=== PATIENT | male | born 1975 | race American Indian/Alaskan Native ===

== ENCOUNTER 2019-10-01 09:50 | Emergency (ER) | payer OTHER ==
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
[2019-10-01] MEDS ORDERED: predniSONE 20 MG TAB PO ONE (12:34)
[2019-10-01] MEDS ORDERED: IBUPROFEN 800 MG TAB PO ONE (12:34)
[2019-10-01 12:45] VITALS: BP 119/72
== END 2019-10-01 14:40 | disposition home or self-care (01) ==
LOC: ED 09:50
DX: M79.604 Pain in right leg (principal); M79.605 Pain in left leg; Z95.5 Presence of coronary angioplasty implant and graft; Z79.899 Other long term (current) drug therapy; V59.59XA Passenger in pick-up truck or van injured in collision with other motor vehicles in traffic accident, initial encounter; Y93.89 Activity, other specified; Y92.410 Unspecified street and highway as the place of occurrence of the external cause; Y99.8 Other external cause status
CPT/HCPCS: 99283; J7512

== ENCOUNTER 2020-08-01 22:42 | Emergency (ER) | payer SELFPAY ==
--- NOTE | 2020-08-01 22:59 | Emergency Department Report ---
ED Psych HPI - General Chief Complaint: Psych Stated Complaint: SUIDICAL IDEATIONS Time Seen by Provider: 08/01/20 22:56 Source: EMS Mode of arrival: Ambulatory - History of Present Illness Initial Comments: 44-year-old male with history of depression and schizophrenia, presents to the ED with suicidal ideations. Patient states he is suicidal because he is unhappy with where he is in life. Patient states he has been sleeping outside for the past 2 weeks. He also reports crack cocaine, marijuana, alcohol abuse. Patient has no plan for suicide. Patient states he has been off his psych meds for approximately 1 year. MD Complaint: suicidal ideation -: This evening Associated Psychiatric Symptoms: depression, suicidal ideation Quality: constant Improves With: none Worsens With: none Context: not taking psychiatric, significant life stressor Associated Symptoms: denies other symptoms Treatments Prior to Arrival: none If Self Harm: admits thoughts of - Related Data Home Medications Medication Instructions Recorded Confirmed Last Taken FLUoxetine HCL [PROzac] 40 mg PO QDAY 08/01/20 08/01/20 Unknown Quetiapine Fumarate [SEROquel] 600 mg PO HS 08/01/20 08/01/20 Unknown Allergies Allergy/AdvReac Type Severity Reaction Status Date / Time No Known Allergies Allergy Unverified 08/01/20 23:01 ED Review of Systems ROS: Stated complaint: SUIDICAL IDEATIONS Other details as noted in HPI Comment: All other systems reviewed and negative Psychiatric: suicidal thoughts ED Past Medical Hx - Past Medical History Additional medical history: Cardiac stents - Social History Smoking Status: Never Smoker Substance Use Type: None - Medications Home Medications: Home Medications Medication Instructions Recorded Confirmed Last Taken Type FLUoxetine HCL [PROzac] 40 mg PO QDAY 08/01/20 08/01/20 Unknown History Quetiapine Fumarate [SEROquel] 600 mg PO HS 08/01/20 08/01/20 Unknown History ED Physical Exam - General Limitations: No Limitations General appearance: alert, in no apparent distress - Head Head exam: Present: atraumatic, normocephalic - Eye Eye exam: Present: normal appearance, EOMI - ENT ENT exam: Present: mucous membranes moist - Neck Neck exam: Present: normal inspection - Respiratory Respiratory exam: Present: normal lung sounds bilaterally. Absent: respiratory distress - Cardiovascular Cardiovascular Exam: Present: regular rate, normal rhythm - GI/Abdominal GI/Abdominal exam: Absent: distended - Extremities Exam Extremities exam: Present: normal inspection - Neurological Exam Neurological exam: Present: alert, oriented X3 - Psychiatric Psychiatric exam: Present: normal affect, normal mood - Skin Skin exam: Present: warm, dry, intact, normal color ED Course Vital Signs 08/01/20 22:58 Temperature 98 F Pulse Rate 88 Respiratory 16 Rate Blood Pressure 126/83 [Left] O2 Sat by Pulse 98 Oximetry ED Medical Decision Making - Lab Data Result diagrams: 08/01/20 23:15 08/01/20 23:15 - Medical Decision Making 44-year-old male presents to ED with reports of suicidal ideation with no plan. Patient reports he is homeless and has been using crack cocaine. Labs are unremarkable. Medically clear for mental health evaluation. Will dispo per psych. Critical care attestation.: If time is entered above; I have spent that time in minutes in the direct care of this critically ill patient, excluding procedure time. ED Disposition Clinical Impression: Cocaine abuse, Depression, Suicidal ideation Condition: Stable Referrals: PRIMARY CARE, [Primary Care Provider] - 3-5 Days
[2020-08-01 23:44] LABS: Basophils % (Auto) 0.6 % (0.0-1.8); Eosinophils # (Auto) 0.1 K/mm3 (0.0-0.4); Eosinophils % (Auto) 0.9 % (0.0-4.3); Hematocrit 41.7 % (35.5-45.6); Lymphocytes # (Auto) 1.6 K/mm3 (1.2-5.4); Lymphocytes % (Auto) 20.7 % (13.4-35.0); Mean Corpuscular HGB Conc 34 % (32-34); Mean Corpuscular Volume 78 fl (84-94); Monocytes # (Auto) 0.6 K/mm3 (0.0-0.8); Monocytes % (Auto) 7.9 % (0.0-7.3); Platelet Count 225 K/mm3 (140-440); Red Blood Count 5.36 M/mm3 (3.65-5.03); Red Cell Distribution Width 14.7 % (13.2-15.2)
[2020-08-01 23:50] LABS: Amphetamine Screen,Urine PRESUMPTIVE NEGATIVE; Benzodiazepines Screen,Urine PRESUMPTIVE NEGATIVE; Cannabinoid Screen,Urine PRESUMPTIVE POSITIVE; Cocaine Screen,Urine PRESUMPTIVE POSITIVE; Methadone Screen,Urine PRESUMPTIVE NEGATIVE; Opiate Screen,Urine PRESUMPTIVE NEGATIVE
[2020-08-01 23:52] LABS: Bacteria,Urine 1+ /HPF (Negative); Bilirubin,Urine NEG (Negative); Blood,Urine NEG (Negative); Color,Urine Yellow (Yellow); Mucus,Urine 3+ /HPF
[2020-08-01 23:56] LABS: BUN/Creatinine Ratio 16; Blood Urea Nitrogen 23 mg/dL (9-20); Calcium 10.2 mg/dL (8.4-10.2); Hemolysis Index 5
--- NOTE | 2020-08-03 10:11 | Consultation ---
History of Present Illness - Reason for Consult Consult date: 08/03/20 Reason for consult: SI - History of Present Psychiatric Illness Gavin Teran is a 44y/o male patient who presented to the ER for suicidal thoughts. The patient is a/o x 3. He makes poor eye contact. The patient says he has "been off his medication for about a year." He says "I need to get stabiliz ed back on them." The patient says he has a history of "schizoaffective disorder, and depression." He says he takes "seroquel 600 and prozac 40." The patient says "I have a lot going on right now." He denies attempting suicide in the past. The patient denies hallucinations. He states he hasn't slept in about "two days." The patient verbalizes being "depressed." He admits to using "crack," and says "I gotta stop. I know that's the source of how I feel." PAST PSYCHIATRIC HISTORY Diagnoses: schizophrenia and depression Suicide attempts or Self-harm behavior: Denies Prior psychiatric hospitalizations: "yes" Substance Abuse history: crack Previous psychiatric medications tried: seroquel, prozac Outpatient treatment: not recently PAST MEDICAL HISTORY: None reported Family Psychiatric History: None reported or documented SOCIAL HISTORY Marital Status: Single Living Arrangements: Homeless Employment Status: Unemployed Access to guns/weapons: Denies Education: History of Abuse: Denies Legal History: Denies EVIEW OF SYSTEMS Constitutional: Negative for weight loss ENT: Negative for stridor Respiratory: Negative for cough or hemoptysis All other systems reviewed and are negative MENTAL STATUS EXAMINATION General Appearance and Behavior: Age appropriate, wearing appropriate clothes, poor eye contact, cooperative Mood: "depressed" Affect and affective range: congruent with mood Thought Process: logical Thought Content: hallucinations Speech: Normal volume, Regular rate and rhythm Suicidal Ideation: Yes Homicidal Ideation: Denies Homicidal Hallucinations: denies Delusions: None elicited Impulse Control: normal Insight and Judgment: Limited Memory/Cognition: Normal Attention: Normal Orientation: Alert, oriented Assessment (1) Schizoaffective Disorder (2) Cocaine Use Disorder (2) Substance Induced Mood Disorder Plan Start Seroquel 300mg po qhs Start Prozac 40mg po qd Sitter: Defer to primary Medical: Per primary Disposition: Recommend acute inpatient treatment Will follow. Thank you for this consult. Medications and Allergies Allergies Allergy/AdvReac Type Severity Reaction Status Date / Time No Known Allergies Allergy Unverified 08/01/20 23:01 Home Medications Medication Instructions Recorded Confirmed Last Taken Type FLUoxetine HCL [PROzac] 40 mg PO QDAY 08/01/20 08/01/20 Unknown History Quetiapine Fumarate [SEROquel] 600 mg PO HS 08/01/20 08/01/20 Unknown History Mental Status Exam - Vital signs Last Vital Signs Temp 98.5 F 08/03/20 08:31 Pulse 61 08/03/20 08:31 Resp 19 08/03/20 08:31 BP 104/80 08/03/20 08:31 Pulse Ox 98 08/03/20 08:31 Results Result Diagrams: 08/01/20 23:15 08/01/20 23:15 All other labs normal.
[2020-08-03] MEDS ORDERED: NON-FORMULARY EACH (Fluoxetine Hcl [Prozac] 40 MG) PO SCH (10:15)
[2020-08-03] MEDS: FLUoxetine 20 MG CAP PO SCH (12:13)
[2020-08-03 13:48] LABS: BUN/Creatinine Ratio 14; Blood Urea Nitrogen 18 mg/dL (9-20); Calcium 9.4 mg/dL (8.4-10.2); Hemolysis Index 8
[2020-08-03] MEDS: QUEtiapine 100 MG TAB PO SCH (21:56)
--- NOTE | 2020-08-04 09:32 | Progress Note ---
Subjective - Reason for Consult Consult date: 08/04/20 Reason for consult: SI - Chief Complaint Chief complaint: During my interview with the patient, he was lying down. He is a/o x 3. The patient says he's feeling "okay." He says the last time he was feeling suicidal was this morning. He says, "I need help, ma'am. I can't go on feeling like this." He denies hallucinations of any kind. EVIEW OF SYSTEMS Constitutional: Negative for weight loss ENT: Negative for stridor Respiratory: Negative for cough or hemoptysis All other systems reviewed and are negative MENTAL STATUS EXAMINATION General Appearance and Behavior: Age appropriate, wearing appropriate clothes, poor eye contact, cooperative Mood: "depressed" Affect and affective range: congruent with mood Thought Process: goal directed Thought Content: logical Speech: Normal volume, Regular rate and rhythm Suicidal Ideation: Yes Homicidal Ideation: Denies Hallucinations: denies Delusions: None elicited Impulse Control: normal Insight and Judgment: Limited Memory/Cognition: Normal Attention: Normal Orientation: Alert, oriented Assessment (1) Schizoaffective Disorder (2) Cocaine Use Disorder (2) Substance Induced Mood Disorder Plan Increased Seroquel 300mg po BID Sitter: Defer to primary Medical: Per primary Disposition: Recommend acute inpatient treatment Will follow. Thank you for this consult. Mental Status Exam - Vital signs Last Vital Signs Temp 97.5 F L 08/04/20 02:30 Pulse 67 08/04/20 02:30 Resp 18 08/04/20 02:30 BP 110/74 08/04/20 02:30 Pulse Ox 97 08/04/20 02:30
[2020-08-04] MEDS: FLUoxetine 20 MG CAP PO SCH (11:13)
[2020-08-04] MEDS: QUEtiapine 100 MG TAB PO SCH ×2 (11:14→21:35)
[2020-08-05] MEDS: QUEtiapine 100 MG TAB PO SCH ×3 (10:15→23:10)
--- NOTE | 2020-08-05 14:22 | Progress Note ---
Subjective - Reason for Consult Consult date: 08/05/20 Reason for consult: SI - Chief Complaint Chief complaint: During my interview with the patient, he was lying down. He is a/o x 3. The patient says he "seems to be getting better." He says, "ma'am, I do feel better, but the suicidal thoughts are still there." He then says "but they are decreasing." The patient says, "the medications have been helping me, but I really need an inpatient treatment." He says, "it just doesn't feel like I been taking them long enough." He denies hallucinations of any kind. EVIEW OF SYSTEMS Constitutional: Negative for weight loss ENT: Negative for stridor Respiratory: Negative for cough or hemoptysis All other systems reviewed and are negative MENTAL STATUS EXAMINATION General Appearance and Behavior: Age appropriate, wearing appropriate clothes, poor eye contact, cooperative Mood: "dbetter" Affect and affective range: congruent with mood Thought Process: goal directed Thought Content: logical Speech: Normal volume, Regular rate and rhythm Suicidal Ideation: Yes Homicidal Ideation: Denies Hallucinations: denies Delusions: None elicited Impulse Control: normal Insight and Judgment: Limited Memory/Cognition: Normal Attention: Normal Orientation: Alert, oriented Assessment (1) Schizoaffective Disorder (2) Cocaine Use Disorder (2) Substance Induced Mood Disorder Plan Continue current medications Sitter: Defer to primary Medical: Per primary Disposition: Recommend acute inpatient treatment Will follow. Thank you for this consult. Mental Status Exam - Vital signs Last Vital Signs Temp 97.8 F 08/05/20 02:00 Pulse 68 08/05/20 02:00 Resp 18 08/05/20 02:00 BP 99/74 08/05/20 02:00 Pulse Ox 100 08/05/20 02:00
[2020-08-05] MEDS: FLUoxetine 20 MG CAP PO SCH (15:53)
[2020-08-06 09:03] VITALS: BP 121/65
== END 2020-08-06 09:14 ==
LOC: ED 22:42 → EEVIPCON 22:42 → ED 08-06 09:14
DX: F25.1 Schizoaffective disorder, depressive type (principal); F14.10 Cocaine abuse, uncomplicated; R45.851 Suicidal ideations; Z79.899 Other long term (current) drug therapy; Z95.5 Presence of coronary angioplasty implant and graft
CPT/HCPCS: 36415; 80048; 80307; 80320; 81001; 85025; G0480

== ENCOUNTER 2020-09-12 05:17 | Emergency (ER) | payer SELFPAY ==
[2020-09-12 07:03] LABS: Basophils # (Auto) 0.1 K/mm3 (0.0-0.1); Basophils % (Auto) 0.7 % (0.0-1.8); Eosinophils # (Auto) 0.1 K/mm3 (0.0-0.4); Eosinophils % (Auto) 1.5 % (0.0-4.3); Hematocrit 39.8 % (35.5-45.6); Hemoglobin 13.2 gm/dl (11.8-15.2); Lymphocytes % (Auto) 12.1 % (13.4-35.0); Mean Corpuscular HGB Conc 33 % (32-34); Mean Corpuscular Volume 78 fl (84-94); Monocytes # (Auto) 0.6 K/mm3 (0.0-0.8); Monocytes % (Auto) 6.7 % (0.0-7.3); Platelet Count 245 K/mm3 (140-440); Red Blood Count 5.08 M/mm3 (3.65-5.03); Red Cell Distribution Width 14.9 % (13.2-15.2)
[2020-09-12 07:21] LABS: Bilirubin,Urine NEG (Negative); Blood,Urine NEG (Negative); Color,Urine Yellow (Yellow); Mucus,Urine FEW /HPF; Protein,Urine <15 mg/dL mg/dL (Negative); Urobilinogen,Urine < 2.0 mg/dL (<2.0)
[2020-09-12 07:21] LABS: Alanine Aminotransferase 18 units/L (7-56); Albumin 4.6 g/dL (3.9-5); BUN/Creatinine Ratio 13; Blood Urea Nitrogen 14 mg/dL (9-20); Calcium 9.2 mg/dL (8.4-10.2); Hemolysis Index 9
--- NOTE | 2020-09-12 10:00 | Emergency Department Report ---
ED Abdominal Pain HPI - General Chief Complaint: Abdominal Pain Stated Complaint: ABDOMINAL PAIN Time Seen by Provider: 09/12/20 07:17 Source: patient Mode of arrival: Stretcher Limitations: No Limitations - History of Present Illness MD Complaint: abdominal pain -: Gradual, hour(s) (1) Location: diffuse Radiation: none Migration to: no migration Severity: mild, moderate Severity scale (0 -10): 4 Quality: aching, dull Consistency: constant Improves With: nothing Worsens With: medication Associated Symptoms: denies other symptoms. denies: nausea, vomiting, diarrhea, constipation, dysuria, hematemesis, hematochezia, melena, hematuria, anorexia - Related Data Home Medications Medication Instructions Recorded Confirmed Last Taken FLUoxetine HCL [PROzac] 40 mg PO QDAY 08/01/20 08/01/20 Unknown Quetiapine Fumarate [SEROquel] 600 mg PO HS 08/01/20 08/01/20 Unknown Previous Rx's Medication Instructions Recorded Last Taken Type Ciprofloxacin HCl [Ciprofloxacin 500 mg PO Q12HR #20 tab 09/12/20 Unknown Rx TAB] Ketorolac [Toradol] 10 mg PO Q6H PRN #10 tablet 09/12/20 Unknown Rx Ondansetron [Zofran Odt] 4 mg PO Q8HR #20 tab.rapdis 09/12/20 Unknown Rx metroNIDAZOLE [Flagyl] 500 mg PO Q12HR #20 tab 09/12/20 Unknown Rx Allergies Allergy/AdvReac Type Severity Reaction Status Date / Time No Known Allergies Allergy Unverified 08/01/20 23:01 ED Review of Systems ROS: Stated complaint: ABDOMINAL PAIN Other details as noted in HPI Comment: All other systems reviewed and negative ED Past Medical Hx - Past Medical History Previous Medical History?: Yes Hx Heart Attack/AMI: Yes (2014) Additional medical history: Cardiac stents - Surgical History Past Surgical History?: Yes Hx Coronary Stent: Yes Hx Appendectomy: Yes Additional Surgical History: facial reconstruction - Social History Smoking Status: Current Every Day Smoker Substance Use Type: Alcohol - Medications Home Medications: Home Medications Medication Instructions Recorded Confirmed Last Taken Type FLUoxetine HCL [PROzac] 40 mg PO QDAY 08/01/20 08/01/20 Unknown History Quetiapine Fumarate [SEROquel] 600 mg PO HS 08/01/20 08/01/20 Unknown History Ciprofloxacin HCl [Ciprofloxacin 500 mg PO Q12HR #20 tab 09/12/20 Unknown Rx TAB] Ketorolac [Toradol] 10 mg PO Q6H PRN #10 tablet 09/12/20 Unknown Rx Ondansetron [Zofran Odt] 4 mg PO Q8HR #20 tab.rapdis 09/12/20 Unknown Rx metroNIDAZOLE [Flagyl] 500 mg PO Q12HR #20 tab 09/12/20 Unknown Rx ED Physical Exam - General Limitations: No Limitations General appearance: alert, in no apparent distress - Head Head exam: Present: atraumatic, normocephalic - Eye Eye exam: Present: normal appearance, PERRL, EOMI Pupils: Present: normal accommodation - ENT ENT exam: Present: normal exam, normal orophraynx, mucous membranes moist, TM's normal bilaterally - Neck Neck exam: Present: normal inspection - Respiratory Respiratory exam: Present: normal lung sounds bilaterally. Absent: respiratory distress - Cardiovascular Cardiovascular Exam: Present: regular rate, normal rhythm. Absent: systolic murmur, diastolic murmur, rubs, gallop - GI/Abdominal GI/Abdominal exam: Present: soft, tenderness, normal bowel sounds, hernia (Umbilical hernia tender), other (No tenderness at McBurney's no Rovsing no Langford Thomson no [place] sign) - Rectal Rectal exam: Present: deferred - Extremities Exam Extremities exam: Present: normal inspection, normal capillary refill - Back Exam Back exam: Present: normal inspection. Absent: CVA tenderness (R), CVA tenderness (L) - Neurological Exam Neurological exam: Present: alert, oriented X3, CN II-XII intact, normal gait - Psychiatric Psychiatric exam: Present: normal affect, normal mood. Absent: anxious, flat affect, manic, suicidal ideation - Skin Skin exam: Present: warm, dry, intact, normal color. Absent: rash, cyanosis, diaphoretic, erythema, petechiae, pallor ED Course Vital Signs 09/12/20 06:40 Temperature 98.3 F Pulse Rate 72 Respiratory 18 Rate Blood Pressure 120/82 [Left] O2 Sat by Pulse 100 Oximetry ED Medical Decision Making - Lab Data Result diagrams: 09/12/20 06:45 09/12/20 06:45 - Radiology Data Radiology results: report reviewed Referring Physician:CASSIDY FREEMANPatient Name:CHRIS PIGUEPatient ID:[id number] of :[id number]:MaleAccession:[id number] Date:[id number] Status:Finalized Findings [facility] [address] [place] [address] Cat Scan Report Signed Patient: CHRIS MCLEAN MR#: [id number] 0 : 1975 Acct:[id number] Age/Sex: 44 / M ADM Date: 09/12/20 Loc: ED Attending Dr: Ordering Physician: FLOYD CONTI Date of Service: 09/12/20 Procedure(s): CT abdomen pelvis w con Accession Number(s): [id number] cc: FLOYD CONTI CT ABDOMEN AND PELVIS WITH CONTRAST INDICATION / CLINICAL INFORMATION: Acute generalized abdominal pain for 2 hours. TECHNIQUE: Axial CT images were obtained through the abdomen and pelvis after 100 cc Omnipaque [address] scans at this location are performed using CT dose reduction for ALARA by means of automated exposure control. COMPARISON: None available. FINDINGS: LOWER CHEST: There is mild right basilar atelectasis with a simple cysts seen along the right cardiophrenic angle measuring 3 cm on image 15 of series 2. No other significant abnormality. LIVER: No significant abnormality. GALLBLADDER: No significant abnormality. BILE DUCTS: No significant abnormality. PANCREAS: No significant abnormality. SPLEEN: No significant abnormality. ADRENALS: No significant abnormality. RIGHT KIDNEY / URETER: No significant abnormality. LEFT KIDNEY / URETER: No significant abnormality. STOMACH / SMALL BOWEL: There is nonspecific thickening of the gastric antrum and first portion of the duodenum without significant surrounding inflammation. No other significant abnormality. COLON: No significant abnormality. APPENDIX: Not visualized. PERITONEUM: No free fluid. No free air. No fluid collection. LYMPH NODES: No significant adenopathy. AORTA / ARTERIES: No significant abnormality. IVC / VEINS: No significant abnormality. URINARY BLADDER: No significant abnormality. REPRODUCTIVE ORGANS: No significant abnormality. ADDITIONAL FINDINGS: None. SKELETAL SYSTEM: No significant abnormality. IMPRESSION: Suspected gastritis/duodenitis as above without an associated complication. Signer Name: Av Jesus MD Signed: 09/12/2020 10:53 AM Workstation Name: [id number] Transcribed By: DANIELA Dictated By: Av Jesus MD Electronically Authenticated By: Av Jesus MD Signed Date/Time: 09/12/20 105 DD/ 104 TD/TT: - Medical Decision Making This patient presents with abdominal pain of unclear etiology. A CT scan was performed to evaluate for potential causes of the abdominal pain, however, neither the clinical exam nor the CT has identified an emergent etiology for the abdominal pain. Specifically, given the benign exam, the laboratory studies, and unremarkable CT, I have a very low suspicion for appendicitis, ischemic bowel, bowel perforation, or any other life threatening disease. I have discussed with the patient the level of uncertainty with undifferentiated abdominal pain and clearly explained the need to follow-up as noted on the discharge instructions, or return to the Emergency Department immediately if the pain worsens, develops fever, persistent and uncontrollable vomiting, or for any new symptoms or concerns. Critical care attestation.: If time is entered above; I have spent that time in minutes in the direct care of this critically ill patient, excluding procedure time. ED Disposition Clinical Impression: Duodenitis Disposition: DC-01 TO HOME OR SELFCARE Is pt being admited?: No Does the pt Need Aspirin: No Condition: Stable Instructions: Duodenitis Prescriptions: Ciprofloxacin HCl [Ciprofloxacin TAB] 500 mg PO Q12HR #20 tab metroNIDAZOLE [Flagyl] 500 mg PO Q12HR #20 tab Ketorolac [Toradol] 10 mg PO Q6H PRN #10 tablet PRN Reason: Pain Ondansetron [Zofran Odt] 4 mg PO Q8HR #20 tab.rapdis Referrals: LYLE GARZA MD [Primary Care Provider] - 3-5 Days
--- NOTE | 2020-09-12 10:57 | Cat Scan Report ---
CT ABDOMEN AND PELVIS WITH CONTRAST INDICATION / CLINICAL INFORMATION: Acute generalized abdominal pain for 2 hours. TECHNIQUE: Axial CT images were obtained through the abdomen and pelvis after 100 cc Omnipaque [address] scans at this location are performed using CT dose reduction for ALARA by means of automated exposure control. COMPARISON: None available. FINDINGS: LOWER CHEST: There is mild right basilar atelectasis with a simple cysts seen along the right cardiop hrenic angle measuring 3 cm on image 15 of series 2. No other significant abnormality. LIVER: No significant abnormality. GALLBLADDER: No significant abnormality. BILE DUCTS: No significant abnormality. PANCREAS: No significant abnormality. SPLEEN: No significant abnormality. ADRENALS: No significant abnormality. RIGHT KIDNEY / URETER: No significant abnormality. LEFT KIDNEY / URETER: No significant abnormality. STOMACH / SMALL BOWEL: There is nonspecific thickening of the gastric antrum and first portion of the duodenum without significant surrounding inflammation. No other significant abnormality. COLON: No significant abnormality. APPENDIX: Not visualized. PERITONEUM: No free fluid. No free air. No fluid collection. LYMPH NODES: No significant adenopathy. AORTA / ARTERIES: No significant abnormality. IVC / VEINS: No significant abnormality. URINARY BLADDER: No significant abnormality. REPRODUCTIVE ORGANS: No significant abnormality. ADDITIONAL FINDINGS: None. SKELETAL SYSTEM: No significant abnormality. IMPRESSION: Suspected gastritis/duodenitis as above without an associated complication. Signer Name: Av Jesus MD Signed: 09/12/2020 10:53 AM Workstation Name: [email or web address]
[2020-09-12 12:07] VITALS: BP 133/93
== END 2020-09-12 11:58 | disposition home or self-care (01) ==
LOC: ED 05:17
DX: K29.80 Duodenitis without bleeding (principal); I25.2 Old myocardial infarction; F17.200 Nicotine dependence, unspecified, uncomplicated; Z90.49 Acquired absence of other specified parts of digestive tract; Z79.899 Other long term (current) drug therapy
CPT/HCPCS: 36415; 74177; 80053; 81001; 83690; 85025; 99284; Q9967